=== PATIENT | female | born 1990 | race African-American/Black ===

== ENCOUNTER 2025-07-18 19:49 | Emergency (ER) | payer MEDICAID, MEDICARE ==
[~2025-07-18] VITALS: Ht 188 cm; Wt 127.0 kg
[2025-07-18] MEDS ORDERED: ACETAMINOPHEN ES 500 MG TABLET ONE (21:11)
[2025-07-18] MEDS: ACETAMINOPHEN 325 MG TABLET PO ONE (21:15)
[2025-07-18 21:20] LABS: PLATELET COUNT (AUTO) 226 K/uL (150-450); RED BLOOD CELL COUNT(AUTO) 3.88 MIL/uL (4.0-5.2); RED CELL DISTRIBUTION WIDTH 13.6 % (11.5-15.0); WHITE BLOOD COUNT (AUTO) 8.2 K/uL (4.3-11.0)
[2025-07-18 21:26] LABS: CALCIUM, SERUM 8.7 mg/dL (8.5-10.1); CREATININE 1.3 mg/dL (0.6-1.3); SODIUM SERUM 135.0 mmol/L (136-145); UREA NITROGEN, BLOOD 20.0 mg/dL (7-18)
[2025-07-18] MEDS ORDERED: CLIN150C16 PO (23:53)
[2025-07-19 00:28] VITALS: BP 110/61; TEMP 98; O2SAT 98
== END 2025-07-19 00:31 | disposition home or self-care (01) ==
LOC: ER 22:10
DX: L08.9 Local infection of the skin and subcutaneous tissue, unspecified (principal); E11.621 Type 2 diabetes mellitus with foot ulcer
CPT/HCPCS: 99284; 73660; 85025; 80048; 85652; 36415; 86140; A6403